=== PATIENT | female | born 1950 | race Caucasian/White ===

== ENCOUNTER 2017-01-17 13:45 | Outpatient (RCR) | payer MEDICARE, MEDICAID ==
[~2017-01-17 13:45] MED LIST: ADDERALL10 MG PO; ALBUTEROL0.83 MG/ML IH; AMBIEN 10MG10 MG PO; AMOXICILLIN 8751 TAB PO; ATARAX 25MG25 MG/TAB PO; CELEBREX; CELEBREX 1100 MG/CAP PO; CEPHALEXIN500 M1 PO; COMBIVENT INH14.7 GM IH; CRESTOR 10MG10 MG PO; CRESTOR10 MG PO; DARVOCET N; DETROL LA; ENABLEX 7.5MG7.5 MG PO; ENABLEX15 MG PO; EZFE 200200 MG PO; FOSAMAX PLUS D1 TAB; MECLIZINE HCL25 M1 PO; MOBIC 7.5MG7.5 MG PO; MUCUS RELIEF400 M1 PO; NEURONTIN300 MG/CAP PO; NORCO 325 MG-51 TAB PO; NORCO 325 MG-7.1 TAB PO; OSCAL 500 TAB500 MG PO; PERCOCET 325 MG1 TA2 PO; PREDNISONE20 MG PO; PROAIR HFA0.09 MG/AC IH; PYRIDIUM 100MG100 MG PO; QUININE SULF; RHINOCORT; ROXICODONE 55 MG/TAB PO; SANCTURA20 MG PO; SINGULAIR 110 MG/TAB PO; SINGULAIR10 MG PO; SYNTHROID0.075 MG/T PO; SYNTHROID0.088 MG/T PO; VALIUM 5MG T5 MG/TAB PO; VALTREX1 GM PO; VENTOLIN0.09 MG IH; ZANAFLEX 4MG TAB4 MG PO; ZANAFLEX2 MG PO; ZANAFLEX4 M1 PO; ZESTRIL 20MG TA20 MG PO; ZETIA10 MG PO; ZITHROMAX TRI-500 MG PO; ZYRTEC 10MG10 MG PO; ZYRTEC5 MG PO; [UNRECOGNIZED DRUG - OTHER] PO
== END 2017-01-21 | disposition still patient (30) ==
LOC: MKS.ESL.PT
DX: M62.81 Muscle weakness (generalized) (principal)
CPT/HCPCS: G8990-GP; G8991-GP

== ENCOUNTER 2017-03-07 13:00 | Outpatient (RCR) | payer MEDICARE, MEDICAID | END 2017-04-23 | disposition home or self-care (01) | LOC: MKS.ESL.PT | DX: M62.81 Muscle weakness (generalized) (principal) | CPT/HCPCS: G8990-GP; G8991-GP; G8992-GP ==

== ENCOUNTER → 2017-07-23 | Outpatient (CLI) | payer MEDICARE, MEDICAID | LOC: COL.VAS 12:38 | DX: R23.0 Cyanosis (principal); R60.0 Localized edema ==

== ENCOUNTER → 2017-07-26 | Outpatient (CLI) | payer MEDICARE, MEDICAID | LOC: COL.VAS 10:53 | DX: I73.00 Raynaud's syndrome without gangrene (principal) ==

== ENCOUNTER → 2017-08-21 | Outpatient (CLI) | payer MEDICARE, MEDICAID | LOC: COL.RAD 12:32 | DX: M79.89 Other specified soft tissue disorders (principal); R60.0 Localized edema; M54.2 Cervicalgia ==

== ENCOUNTER 2018-07-01 13:00 | Outpatient (RCR) | payer MEDICARE, MEDICAID | END 2018-07-02 09:53 | disposition home or self-care (01) | LOC: WSC 13:00 | DX: R29.898 Other symptoms and signs involving the musculoskeletal system (principal) | CPT/HCPCS: G8978-GP; G8979-GP ==

== ENCOUNTER → 2020-07-27 | Outpatient (CLI) | payer MEDICARE, MEDICAID | LOC: COL.RAD 07-13 12:30 | DX: G31.9 Degenerative disease of nervous system, unspecified (principal); I67.82 Cerebral ischemia ==

== ENCOUNTER → 2020-11-09 | Outpatient (CLI) | payer MEDICARE, MEDICAID | LOC: MC.RAD 14:30 | DX: Z12.31 Encounter for screening mammogram for malignant neoplasm of breast (principal) ==

== ENCOUNTER 2024-05-11 18:06 | Inpatient (IN) | payer MEDICARE, MEDICAID ==
[~2024-05-11] VITALS: Ht 147 cm; Wt 37.7 kg
--- NOTE | 2024-05-12 03:35 | NUR ---
An Electronic Health Record (EHR) downtime event occurred during this patients care. For legal medical record information generated during the downtime period, please reference the patient's legal medical record. Paper or scanned documentation has been incorporated into the legal medical record which is maintained in accordance with Health Information Management (HIM) and record retention policies.
[2024-05-12 04:00] VITALS: BP 138/74; PULSE 63; TEMP 97.8
[2024-05-12] MEDS ORDERED: D5W 250 ML IV SCH (05:00)
[2024-05-12] MEDS ORDERED: hydrALAZINE 20 MG/ML 1 ML VIAL IV PRN (05:00)
[2024-05-12] MEDS ORDERED: Albuterol/Ipratropium 3 MG-0.5 MG/3 ML Neb Soln IH PRN (05:00)
[2024-05-12] MEDS ORDERED: oxyCODONE 5 MG TAB PO PRN (05:00)
[2024-05-12] MEDS ORDERED: Insulin Regular Human (NovoLIN R/HumuLIN R) IV SCH (05:00)
[2024-05-12] MEDS ORDERED: Acetaminophen 325 MG TAB PO PRN (05:15)
[2024-05-12] MEDS ORDERED: Ondansetron 4 MG/2 ML VIAL IV PRN (05:15)
[2024-05-12] MEDS ORDERED: traZODone 50 MG TAB PO PRN (05:15)
[2024-05-12] MEDS ORDERED: NS 1,000 ML IV SCH (05:15)
[2024-05-12 07:27] VITALS: BP 157/78; PULSE 53; TEMP 98.2
[2024-05-12] MEDS ORDERED: PROTONIX 40MG T40 MG PO (08:43)
[2024-05-12] MEDS ORDERED: CYMBALTA 60MG60 MG PO (08:44)
[2024-05-12] MEDS ORDERED: DITROPAN 5MG TAB5 MG PO (08:45)
[2024-05-12] MEDS ORDERED: K-TAB20 PO (08:47)
[2024-05-12] MEDS ORDERED: Nicotine 14 MG DAILY PATCH TD SCH (09:00)
[2024-05-12] MEDS ORDERED: DULoxetine 60 MG CAP PO SCH (09:00)
[2024-05-12] MEDS ORDERED: NORCO 325 MG-7.1 TAB PO (09:12)
[2024-05-12] MEDS ORDERED: AMBIEN 5MG TABLE5 MG PO (09:13)
--- NOTE | 2024-05-12 10:58 | NUR ---
workers compensation attorney met with patient to discuss discharge planning. Patient stated she lives in [place] by herself. Points of contact are Jeanie, half sibling, P# [phone], Katelynn (sister) P# [phone], Emmanuel (half sibling) P# [phone]. PCP is Dr. Mora, pharmacy is [facility]. No issues affording medications. Insurance is Medicare A and B, Medicaid [facility]. DME is cane. Patient reports to be independent with ADLS. No DPOA-HC, nurse reported patient had some confusion, so medical social worker did not feel comfortable completing one at this time. Patient stated she was looking at making Emmanuel DPOA initially but since she lives in [place], she was looking at making [place] and Jeanie as DPOA-HC but she had not completed one yet. 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 Patient reports she has transportation to go to and from appointments. Patient would like to return home at time of discharge. DAV contacted Katelynn, sister, to discuss patient's needs. Katelynn expressed concerns about patient not caring for herself at home and that she is going through grieving from a friend and daughter passing away. Katelynn asked about patient establishing a DPOA-HC. DAV explained with patient having confusion, the hospital does not complete a DPOA-HC. Katelynn explained she works with an insurance defense attorney and they have offered to draft a DPOA-HC. DAV explained patient had explained she was interested in making [place] and Jeanie as DPOA-HC. Katelynn explained Jeanie was not interested in doing so but she was willing to. DAV explained she can discuss this with the patient and the insurance defense attorney can assist her with completing a DPOA-HC. DAV explained typically when an insurance defense attorney completes these in the hospital they meet with the patient in person to discuss whom they want listed as agents. Katelynn stated she would speak with the insurance defense attorney and get back with her. DAV received a call from Katelynn whom explained the insurance defense attorney wanted to see the form the hospital uses as a guideline but that the insurance defense attorney would draft up his own DPOA-HC. DAV faxed and emailed a copy of the blank DPOA-HC form. Katelynn expresssed they could do a ZOOM meeting at 11:30 am. DAV explained she would see if she or the nurse could do so. DAV was notified patient's potassium level improved and she would be ready for discharge home today. Dr. Parish spoke with patient's sister, Katelynn. Katelynn expressed concerns to Dr. Parish about patient's ability to walk and that she is not eating appropriately. PT was able to visit with patient and reported patient is able to return home. DAV contacted Katelynn and explained she was unable to meet with patient to complete this ZOOM conference as she was needed elsewhere for discharges. Katelynn stated she was working on filling out the form that the medical social worker had sent her. DAV explained she had understood that form was to be a guideline so that the insurance defense attorney could draft up their own DPOA-HC with the necessary information. Katelynn again expressed she was filling out this form that the medical social worker had sent and that the patient needed to sign and Chance, insurance defense attorney, needed to be able to witness her signature. DAV explained patient, Katelynn and insurance defense attorney would need to complete this outside of the time patient is in the hospital as Dr. Parish reported patient would be discharging today and the medical social worker was unable to meet with them and complete a ZOOM meeting. DAV notified Bridget Cordova, SW airport ramp supervisor, regarding this because of the concern that patient is not filling out this form and they are stating she just needs to sign the form. Bridget expressed she was going to contact Katelynn to inform her to complete this outside of the hospital and that patient needs to be able to express her decision for whom she wants to be DPOA-HC while completing the form. Due to patient's sister's concerns with patient not eating appropriately or caring for herself, medical social worker made APS report. Intake ID [id number] Discharge Plan: Home
--- NOTE | 2024-05-12 11:01 | NUR ---
PATIENT RESTING IN BED. ALERT AND ORIENTED. SHIFT ASSESSMENT COMPLETE. MEDICATIONS ADMINISTERED PER MAR. PATIENT DENIES PAIN OR DISCOMFORT. THIS NURSE ASSISTED PATIENT TO BATHROOM. PATIENT AMBULATED WELL. ALL NEEDS MET AT THIS TIME.
[2024-05-12 11:20] VITALS: BP 173/74; PULSE 59; TEMP 98.2
--- NOTE | 2024-05-12 11:37 | NUR ---
D: Rail Filler stopped by room on rounds. A: Pt was resting and content. Pt has no needs right now. Pt appreciated the visit. P: Rail Filler informed pt that if she needed anything from the journeyman operator assistant area to let her nurse know. Rail Filler will follow up as needed.
--- NOTE | 2024-05-12 11:58 | NUR ---
THIS NURSE GAVE PATIENT DISCHARGE INSTRUCTIONS. ALL QUESTIONS ANSWERED. THIS NURSE DISCONTINUED INT TO LEFT AC. NO REDNESS, DRAINAGE, OR EDEMA NOTED. PATIENT DENIES FURTHER QUESTIONS OR CONCERNS.
--- NOTE | 2024-05-12 12:27 | NUR ---
PATIENT ESCORTED OFF UNIT VIA WC WITH PCT. ALL BELONGINGS WITH PATIENT.
--- NOTE | 2024-05-12 14:26 | NUR ---
recycle worker spoke with patient's sister, Katelynn, who lives in [place], [place]. Worker provided information on durable power of employment attorney and advised that due to some confusion with the patient, we will not be assisting with this completion. Worker encouraged Katelynn to schedule time and attend patient's next primary care provider appointment. Patient is discharging today. Worker left a message with Ewelina at Dr Mora's office to call Katelynn and see if she can attend patient's appointment. Discharge plan: Home.
[2024-05-12] MEDS ORDERED: Oxybutynin 5 MG TAB PO SCH (21:00)
== END 2024-05-12 12:20 | disposition home or self-care (01) | DRG 641 ==
LOC: COL.ER 18:06 → MEDICAL 21:45
PROVIDERS: ADMIT Internal Medicine
DX: E87.5 Hyperkalemia (principal); G47.00 Insomnia, unspecified; E03.9 Hypothyroidism, unspecified; R26.89 Other abnormalities of gait and mobility; F17.210 Nicotine dependence, cigarettes, uncomplicated; F22 Delusional disorders; M62.838 Other muscle spasm; G89.4 Chronic pain syndrome; Z88.2 Allergy status to sulfonamides; Z88.8 Allergy status to other drugs, medicaments and biological substances; Z88.6 Allergy status to analgesic agent; Z91.041 Radiographic dye allergy status
CPT/HCPCS: J1650; J7030